=== PATIENT | male | born 1985 | race African-American/Black ===

== ENCOUNTER 2018-12-18 12:25 | Emergency (ER) | payer BC ==
[~2018-12-18] VITALS: Ht 182.9 cm; Wt 81.8 kg
[2018-12-18] MEDS ORDERED: LIDOCAINE 1% 10 ML VIAL INJ ONE (15:30)
[2018-12-18] MEDS ORDERED: BACITRACIN 0.9 GM PACKET OINTMENT TP ONE (16:15)
[2018-12-18 17:24] VITALS: BP 139/81
== END 2018-12-18 17:26 | disposition home or self-care (01) ==
LOC: EMS 12:29
DX: S01.21XA Laceration without foreign body of nose, initial encounter (principal); S10.93XA Contusion of unspecified part of neck, initial encounter; Y00.XXXA Assault by blunt object, initial encounter; Y93.89 Activity, other specified; Y92.89 Other specified places as the place of occurrence of the external cause; Y99.8 Other external cause status
CPT/HCPCS: 12011; 70486; 99284; J3490

== ENCOUNTER 2018-12-27 12:24 | Emergency (ER) | payer BC ==
[~2018-12-27] VITALS: Ht 180.3 cm; Wt 77.3 kg
[2018-12-27 12:55] VITALS: BP 142/78
== END 2018-12-27 13:31 | disposition home or self-care (01) ==
LOC: EMS 12:25
DX: S01.21XD Laceration without foreign body of nose, subsequent encounter (principal); R03.0 Elevated blood-pressure reading, without diagnosis of hypertension; Z48.02 Encounter for removal of sutures; X58.XXXD Exposure to other specified factors, subsequent encounter